=== PATIENT | male | born 1980 | race Caucasian/White ===

== ENCOUNTER 2019-01-21 22:38 | Emergency (ER) | payer OTHER ==
[~2019-01-21] VITALS: Ht 177.8 cm; Wt 72.6 kg
[~2019-01-21 22:38] MED LIST: ACYC400 PO; ALBU90OI INH; ALPR1; ALPR1 PO; AMOX500 PO; AMOX875 PO; Amoxicillin500 MG PO; CEPH500 PO; CLIN300 PO; CLON.1 PO; CLON.2 PO; CLON1 PO; CYCL10 PO; Cleocin HCl300 MG PO; DIPATR PO; FLUO10; GENT.3OPSA OU; HYDACE5 PO; HYDACE5325 PO; HYDHCL25 PO; IBUP200; IBUP600 PO; IBUP800 PO; LORA1 PO; LORA10ER PO; LORA2 PO; MAGIC MOUTHWASH; META800 PO; METH10; METH10 PO; METH40; METH40 PO; METH5; NAPR500 PO; NAPR550 PO; Naprosyn500 MG PO; OXYACE5T PO; PENVK250 PO; PENVK500 PO; PRED10 PO; PROC10 PO; PROM25 PO; Prednisone20 MG PO; RXCLIN PO; RXCYCL10 PO; RXHYDACE PO; RXIBUP800 PO; RXMETA800 PO; RXNAPNA550 PO; RXOXYACE PO; RXPENVK250 PO; SULTRIDS PO; SUMA25 PO; Sudogest30 MG PO; TRAM50 PO; Veetids 500500 MG PO; ZOLP10 PO; Zovirax800 MG PO
[2019-01-21] MEDS ORDERED: Vibramycin100 MG PO (22:57)
== END 2019-01-21 23:03 | disposition home or self-care (01) ==
LOC: ER 22:38
DX: L03.114 Cellulitis of left upper limb (principal); J45.909 Unspecified asthma, uncomplicated; F17.200 Nicotine dependence, unspecified, uncomplicated; Z88.5 Allergy status to narcotic agent; Z88.2 Allergy status to sulfonamides; Z88.8 Allergy status to other drugs, medicaments and biological substances
CPT/HCPCS: 99283

== ENCOUNTER 2019-09-24 10:22 | Observation (INO) | payer OTHER ==
[~2019-09-24] VITALS: Ht 175.3 cm; Wt 74.7 kg
[~2019-09-24 10:22] MED LIST changes: +Vibramycin100 MG PO
[2019-09-24 11:25] LABS: Alanine Aminotransfer (ALT/SGP 21 U/L (12-78); Albumin, Blood 2.9 g/dL (3.4-5.0); Albumin/Globulin Ratio 0.7 (0.8-1.8); Alk Phos 112 U/L (50-136); Anion Gap 4 mmol/L (6-16); Aspartate Aminotrans (AST/SGOT 12 U/L (12-37); Bilirubin, Total 0.2 mg/dL (0.1-1.0); Blood Urea Nitrogen 13 mg/dL (8-24); Bun/Creatinine Ratio 19.9 (12.0-20.0); CO2, Blood 29 mmol/L (21-32); Calcium, Blood 8.7 mg/dL (8.5-10.1); Chloride, Blood 106 mmol/L (98-108); Creatinine, Blood 0.65 mg/dL (0.60-1.20); Globulin, Blood 3.9 g/dL (2.2-4.0); Glomerular Filtration Rate >60 (60-); Glucose, Blood 137 mg/dL (70-99); Potassium, Blood 3.9 mmol/L (3.5-5.5); Sodium, Blood 139 mmol/L (136-145); Total Protein, Blood 6.8 g/dL (6.4-8.2)
[2019-09-24 11:38] LABS: BASOPHILS ABSOLUTE AUTO 0.04 K/mm3 (0.00-0.23); BASOPHILS PERCENT AUTO 0 % (0-2); EOSINOPHILS ABSOLUTE AUTO 0.21 K/mm3 (0.00-0.68); EOSINOPHILS PERCENT AUTO 2 % (0-6); Hematocrit 36.8 % (37.0-53.0); Hemoglobin 11.9 g/dL (13.5-17.5); IMMATURE GRAN ABSOLUTE AUTO 0.03 K/mm3 (0.00-0.10); IMMATURE GRAN PERCENT AUTO 0 % (0-1); LYMPHOCYTES ABSOLUTE AUTO 2.22 K/mm3 (0.84-5.20); LYMPHOCYTES PERCENT AUTO 20 % (21-46); MONOCYTES ABSOLUTE AUTO 0.81 K/mm3 (0.16-1.47); MONOCYTES PERCENT AUTO 7 % (4-13); Mean Corpuscular HGB 30.4 pg (26.0-34.0); Mean Corpuscular HGB Conc 32.3 g/dL (31.5-36.5); Mean Corpuscular Volume 94 fL (80-100); NEUTROPHILS ABSOLUTE AUTO 7.94 K/mm3 (1.96-9.15); NEUTROPHILS PERCENT AUTO 71 % (41-73); RDW Coefficient Variation 13.2 % (11.7-14.2); RDW Standard Deviation 45.7 fL (35.1-46.3); Red Blood Cell Count 3.92 M/mm3 (4.30-5.90); White Blood Cell Count 11.25 K/mm3 (4.00-11.30)
[2019-09-24 11:42] LABS: Mean Platelet Volume 10.5 fL (9.1-12.4); Platelet Count 251 K/mm3 (150-400)
--- NOTE | 2019-09-24 17:28 | NUR ---
SHIFT SUMMARY 1430 RECEIVED PT TO RM 338 VIA W/C FROM ER FOR LH CELLULITIS. PT HERE YESTERDAY FOR THE SAME, BUT WENT AMA. PER REPORT FROM VINNIE LYMAN, LH CELLULITIS FROM A MISSED HEROIN INJECTION. REDNESS AND SWELLING TO LH, WITH SWELLING GOING UP L ARM TO ELBOW. IV ABX GIVEN IN ER WITH 1L IVF'S. PT HAS BEEN CO-OP WITH CARE TO PRESENT. PT INFORMED IN ER BY DR DANIEL AND NURSING STAFF THAT HE WOULD NOT BE GETTING ANY IV PAIN MEDICATION WHILE HERE. PT AGREED TO BE ADMITTED AND WILLING TO TAKE PO PAIN MEDICATION TO PRESENT. IV TO L FOOT INFUSING IV ABX AT THIS TIME. PT HAS BEEN VERY DROWSY, BUT WAKES BRIEFLY TO CARE. PER REPORT, PT LAST USED HEROIN TODAY BEFORE COMING IN. VISITOR IN AT BS WHILE PT SLEEPING. CALL LT IN REACH.
--- NOTE | 2019-09-24 23:47 | NUR ---
DR NGUYEN called & informed PT is seeking methadone 40 mg . He has been activly using IV heroin 1 gram daily x 8 months last use last night. He used to recieve 140 mg methadone daily from [facility] methadone clinic but relapsed 8 monhts ago. He says he desired to stop heroin use & resume methadone per clinic on discharge. says he needs active medication from home med list to rx methadone. PT had been offered suboxone but declined says it makes him sick. Is quiet, indep in room, says he will have to go AMA if he can't get methadone? continue to explore option of resuming methadone. Have medicated for pain with tylenol & roxicodone.
[2019-09-24] MEDS ORDERED: METH40 PO (23:59)
[2019-09-25] MEDS ORDERED: CEPH500 PO (12:16)
--- NOTE | 2019-09-25 12:50 | NUR ---
DISCHARGE THIS AM PT ANXIOUS, STATE "BODY ACHES", "ALL OVER". STATE HE IS HEROIN USER NEEDS METHADONE AND NO ONE IS LISTENING TO HIM. PRN OXYCODONE 5MG GIVEN FOR PAIN. PT STATE HE NEEDS TO LEAVE AMA. DR SCHMID NOTIFIED. PT'S L ARM CELLULITIS APPEARS IMPROVED, MINIMAL REDNESS, CONTINUES SWOLLEN. DR SCHMID IN TO SEE HIM, STATE HE MAY GO HOME TODAY, PROVIDE D/C ORDERS. IV D/C INTACT. SHOWER PROVIDED. D/C INSTRUCT PROVIDED w EMPHASIS ON L ARM HYGIENE & ANTIBX. HIS FRIEND IN FOR TRANSPORT HOME. PT CHOOSES TO AMBULATE FROM HOSP. STATES APPRECIATION.
== END 2019-09-25 12:35 | disposition home or self-care (01) ==
LOC: ER 10:22 → MEDS 10:23 → ER 12:59 → MEDS 12:59
PROVIDERS: Emergency Medicine; ADMIT Internal Medicine
DX: L03.114 Cellulitis of left upper limb (principal); J45.909 Unspecified asthma, uncomplicated; F11.10 Opioid abuse, uncomplicated; F17.210 Nicotine dependence, cigarettes, uncomplicated; Z88.2 Allergy status to sulfonamides; Z88.1 Allergy status to other antibiotic agents; Z88.6 Allergy status to analgesic agent
CPT/HCPCS: 36415; 80053; 85025; 96361; 96365; 96366; 96367; 96376; 99284-25; A9270; G0378; J0690; J3370; J7030; J7050

== ENCOUNTER 2019-12-16 08:32 | Emergency (ER) | payer OTHER ==
[~2019-12-16] VITALS: Ht 175.3 cm; Wt 72.6 kg
[2019-12-16] MEDS ORDERED: DOXY100 PO (09:41)
== END 2019-12-16 09:50 | disposition home or self-care (01) ==
LOC: ER 08:32
DX: L02.413 Cutaneous abscess of right upper limb (principal); L02.414 Cutaneous abscess of left upper limb; L03.114 Cellulitis of left upper limb; L03.113 Cellulitis of right upper limb; F17.210 Nicotine dependence, cigarettes, uncomplicated; Z88.5 Allergy status to narcotic agent; Z88.2 Allergy status to sulfonamides; Z88.1 Allergy status to other antibiotic agents; Z86.59 Personal history of other mental and behavioral disorders
CPT/HCPCS: 10061; 99283-25

== ENCOUNTER 2020-10-06 21:04 | Emergency (ER) | payer OTHER ==
[~2020-10-06] VITALS: Ht 177.8 cm; Wt 81.7 kg
[~2020-10-06 21:04] MED LIST changes: +DOXY100 PO
[2020-10-06] MEDS ORDERED: BENZ100A PO (21:39)
== END 2020-10-06 21:48 | disposition home or self-care (01) ==
LOC: ER 21:04
DX: U07.1 COVID-19 (principal); F17.210 Nicotine dependence, cigarettes, uncomplicated; J45.909 Unspecified asthma, uncomplicated; Z88.5 Allergy status to narcotic agent; Z88.2 Allergy status to sulfonamides; Z88.1 Allergy status to other antibiotic agents
CPT/HCPCS: 99283; A9270

== ENCOUNTER 2020-10-10 13:26 | Inpatient (IN) | payer OTHER ==
[~2020-10-10] VITALS: Ht 180.3 cm; Wt 73.2 kg
[~2020-10-10 13:26] MED LIST changes: +BENZ100A PO
[2020-10-10 14:07] LABS: Hematocrit 45.3 % (37.0-53.0); Hemoglobin 15.2 g/dL (13.5-17.5); Mean Corpuscular HGB Conc 33.6 g/dL (31.5-36.5); Mean Corpuscular Volume 87 fL (80-100); Mean Platelet Volume 11.7 fL (9.1-12.4); Platelet Count 213 K/mm3 (150-400); RDW Coefficient Variation 14.1 % (11.7-14.2); Red Blood Cell Count 5.24 M/mm3 (4.30-5.90); White Blood Cell Count 7.96 K/mm3 (4.00-11.30)
[2020-10-10 14:25] LABS: Alanine Aminotransfer (ALT/SGP 108 U/L (12-78); Albumin, Blood 2.1 g/dL (3.4-5.0); Albumin/Globulin Ratio 0.4 (0.8-1.8); Alk Phos 77 U/L (50-136); Anion Gap 9 mmol/L (6-16); Aspartate Aminotrans (AST/SGOT 375 U/L (12-37); Bilirubin, Total 0.7 mg/dL (0.1-1.0); Blood Urea Nitrogen 27 mg/dL (8-24); Bun/Creatinine Ratio 30.5 (12.0-20.0); CO2, Blood 24 mmol/L (21-32); Calcium, Blood 8.6 mg/dL (8.5-10.1); Chloride, Blood 99 mmol/L (98-108); Creatinine, Blood 0.88 mg/dL (0.60-1.20); Globulin, Blood 5.1 g/dL (2.2-4.0); Glomerular Filtration Rate >60 (60-); Glucose, Blood 128 mg/dL (70-99); Potassium, Blood 4.2 mmol/L (3.5-5.5); Sodium, Blood 132 mmol/L (136-145); Total Protein, Blood 7.2 g/dL (6.4-8.2)
[2020-10-10 14:38] LABS: C-REACTIVE PROTEIN, EXT RANGE >19.000 mg/dL (0.000-0.300)
[2020-10-10 14:40] LABS: BAND PERCENT MAN 12 % (0-8); BASOPHILS PERCENT MAN 0 % (0-2); EOSINOPHILS ABSOLUTE MAN 0.07 K/mm3 (0.00-0.68); EOSINOPHILS PERCENT MAN 1 % (0-6); LYMPHOCYTES ABSOLUTE MAN 0.31 K/mm3 (0.84-5.20); LYMPHOCYTES PERCENT MAN 4 % (21-46); METAMYELOCYTE ABSOLUTE MAN 0.31 K/mm3 (0.00-0.00); METAMYELOCYTE PERCENT MAN 4 % (0-0); MONOCYTES PERCENT MAN 0 % (4-13); MYELOCYTE ABSOLUTE MAN 0.07 K/mm3 (0.00-0.00); MYELOCYTE PERCENT MAN 1 % (0-0); NEUTROPHILS ABSOLUTE MAN 7.16 K/mm3 (1.96-9.15); SEG NEUTROPHILS PERCENT MAN 78 % (41-73); TOTAL CELLS COUNTED 100
--- NOTE | 2020-10-11 05:56 | NUR ---
SUMMARY PT ARRIVED TO FLOOR IN NO DISTRESS. PT C/O HEROIN WITHDRAW AND DIARRHEA. PT PULLING OFF O2 FREQUENTLY AND DESATING. PT IS ON 15 LPM NONREBREATHER AND BIOX IS 88-92%. PT IS IMPULSIVE AND HIGH FALL RISK. PT CURRENTLY SLEEPING. BED ALARM ON.
--- NOTE | 2020-10-11 12:34 | NUR ---
PT WENT AMA AT 1230. EDUCATED ON THE RISKS OF LEAVING. THE BIGGEST RISK IS DUE TO HAVING COVID AND NEEDING 12 LITERS OF HIGH FLOW OXYGEN IN TO ORDER TO BREATHE. PT REPORTED THAT HE UNDERSTANDS AND WOULD RATHER GO GET HEROIN. DR. KEYES NOTIFIED AND AGREEABLE THAT PT WAS ADMITTED VOLUNTARILY AND IS ALERT AND ORIENTED ENOUGH TO MAKE HIS OWN MEDICAL DECISIONS.
== END 2020-10-11 12:49 | disposition left against medical advice (07) | DRG 871 ==
LOC: ER 13:26 → MEDS 16:50 → ERHOLD 16:50 → MEDS 19:35
PROVIDERS: Emergency Medicine; ADMIT Internal Medicine
PROC: 8E0ZXY6 Isolation (ICD-10-PCS; principal; 2020-10-10)
PROC: 3E0333Z Introduction of Anti-inflammatory into Peripheral Vein, Percutaneous Approach (ICD-10-PCS; 2020-10-10)
PROC: XW033E5 Introduction of Remdesivir Anti-infective into Peripheral Vein, Percutaneous Approach, New Technology Group 5 (ICD-10-PCS; 2020-10-10)
DX: A41.89 Other specified sepsis (principal); U07.1 COVID-19; J12.82 Pneumonia due to coronavirus disease 2019; E87.1 Hypo-osmolality and hyponatremia; F11.13 Opioid abuse with withdrawal; T40.1X1A Poisoning by heroin, accidental (unintentional), initial encounter; J45.909 Unspecified asthma, uncomplicated; F17.210 Nicotine dependence, cigarettes, uncomplicated; Z88.2 Allergy status to sulfonamides; Z59.0 Homelessness; Z88.8 Allergy status to other drugs, medicaments and biological substances; Z79.899 Other long term (current) drug therapy
CPT/HCPCS: 36415; 71045; 80053; 83605; 84145; 85025; 85379; 86140; 87040; 93005; 93010; 96365; 96375; 99285-25; A9270; J1100; J1170; J1650; J2310; J7030

== ENCOUNTER 2020-10-11 14:44 | Emergency (ER) | payer OTHER ==
[~2020-10-11] VITALS: Ht 177.8 cm; Wt 68.0 kg
[2020-10-11 17:22] LABS: Hemoglobin 13.3 g/dL (13.5-17.5); Mean Corpuscular HGB 29.5 pg (26.0-34.0); Mean Corpuscular Volume 84 fL (80-100); Mean Platelet Volume 11.6 fL (9.1-12.4); Platelet Count 253 K/mm3 (150-400); RDW Coefficient Variation 13.8 % (11.7-14.2); Red Blood Cell Count 4.51 M/mm3 (4.30-5.90); White Blood Cell Count 6.86 K/mm3 (4.00-11.30)
[2020-10-11 17:36] LABS: Alanine Aminotransfer (ALT/SGP 112 U/L (12-78); Albumin/Globulin Ratio 0.4 (0.8-1.8); Alk Phos 84 U/L (50-136); Anion Gap 9 mmol/L (6-16); Aspartate Aminotrans (AST/SGOT 276 U/L (12-37); Bilirubin, Total 0.9 mg/dL (0.1-1.0); Blood Urea Nitrogen 23 mg/dL (8-24); Bun/Creatinine Ratio 30.5 (12.0-20.0); CO2, Blood 23 mmol/L (21-32); Calcium, Blood 8.8 mg/dL (8.5-10.1); Chloride, Blood 101 mmol/L (98-108); Creatinine, Blood 0.75 mg/dL (0.60-1.20); Globulin, Blood 4.8 g/dL (2.2-4.0); Glomerular Filtration Rate >60 (60-); Glucose, Blood 96 mg/dL (70-99); Sodium, Blood 133 mmol/L (136-145); Total Protein, Blood 6.8 g/dL (6.4-8.2)
[2020-10-11 18:27] LABS: BAND PERCENT MAN 6 % (0-8); BASOPHILS PERCENT MAN 0 % (0-2); EOSINOPHILS PERCENT MAN 0 % (0-6); LYMPHOCYTES ABSOLUTE MAN 0.41 K/mm3 (0.84-5.20); LYMPHOCYTES PERCENT MAN 6 % (21-46); MONOCYTES PERCENT MAN 3 % (4-13); NEUTROPHILS ABSOLUTE MAN 6.24 K/mm3 (1.96-9.15); SEG NEUTROPHILS PERCENT MAN 85 % (41-73); TOTAL CELLS COUNTED 100
== END 2020-10-11 18:58 | disposition home or self-care (01) ==
LOC: ER 14:44
PROVIDERS: Physician Assistant
DX: U07.1 COVID-19 (principal); T40.1X1A Poisoning by heroin, accidental (unintentional), initial encounter; F11.10 Opioid abuse, uncomplicated; F17.210 Nicotine dependence, cigarettes, uncomplicated; J45.909 Unspecified asthma, uncomplicated; Z59.0 Homelessness; Z88.8 Allergy status to other drugs, medicaments and biological substances; Z88.5 Allergy status to narcotic agent; Z88.2 Allergy status to sulfonamides; Z88.1 Allergy status to other antibiotic agents
CPT/HCPCS: 80053; 85025; 99283-25; M0243; Q0243

== ENCOUNTER 2020-12-16 20:09 | Emergency (ER) | payer OTHER ==
[~2020-12-16] VITALS: Ht 180.3 cm; Wt 72.6 kg
[2020-12-16] MEDS ORDERED: Cleocin HCl300 MG PO (22:49)
== END 2020-12-16 23:00 | disposition home or self-care (01) ==
LOC: ER 20:09
DX: L02.31 Cutaneous abscess of buttock (principal); L03.317 Cellulitis of buttock; Z88.5 Allergy status to narcotic agent; Z88.2 Allergy status to sulfonamides; Z88.1 Allergy status to other antibiotic agents; F17.210 Nicotine dependence, cigarettes, uncomplicated
CPT/HCPCS: 10060; 99282-25; A9270

== ENCOUNTER 2021-03-23 18:35 | Emergency (ER) | payer OTHER ==
[~2021-03-23] VITALS: Ht 175.3 cm; Wt 77.1 kg
[2021-03-23 21:45] LABS: BASOPHILS ABSOLUTE AUTO 0.03 K/mm3 (0.00-0.23); BASOPHILS PERCENT AUTO 0 % (0-2); EOSINOPHILS ABSOLUTE AUTO 0.06 K/mm3 (0.00-0.68); EOSINOPHILS PERCENT AUTO 1 % (0-6); Hemoglobin 11.8 g/dL (13.5-17.5); IMMATURE GRAN ABSOLUTE AUTO 0.02 K/mm3 (0.00-0.10); IMMATURE GRAN PERCENT AUTO 0 % (0-1); LYMPHOCYTES ABSOLUTE AUTO 1.96 K/mm3 (0.84-5.20); LYMPHOCYTES PERCENT AUTO 24 % (21-46); MONOCYTES ABSOLUTE AUTO 0.87 K/mm3 (0.16-1.47); MONOCYTES PERCENT AUTO 11 % (4-13); Mean Corpuscular HGB 29.1 pg (26.0-34.0); Mean Corpuscular HGB Conc 33.7 g/dL (31.5-36.5); Mean Corpuscular Volume 86 fL (80-100); Mean Platelet Volume 9.8 fL (9.1-12.4); NEUTROPHILS ABSOLUTE AUTO 5.26 K/mm3 (1.96-9.15); NEUTROPHILS PERCENT AUTO 64 % (41-73); Platelet Count 354 K/mm3 (150-400); RDW Coefficient Variation 14.6 % (11.7-14.2); RDW Standard Deviation 46.4 fL (35.1-46.3); Red Blood Cell Count 4.06 M/mm3 (4.30-5.90)
[2021-03-23 22:06] LABS: Alanine Aminotransfer (ALT/SGP 15 U/L (12-78); Albumin, Blood 2.8 g/dL (3.4-5.0); Albumin/Globulin Ratio 0.7 (0.8-1.8); Alk Phos 97 U/L (50-136); Anion Gap 5 mmol/L (6-16); Aspartate Aminotrans (AST/SGOT 13 U/L (12-37); Bilirubin, Total 0.1 mg/dL (0.1-1.0); Blood Urea Nitrogen 13 mg/dL (8-24); Bun/Creatinine Ratio 15.2 (12.0-20.0); CO2, Blood 28 mmol/L (21-32); Calcium, Blood 8.7 mg/dL (8.5-10.1); Chloride, Blood 102 mmol/L (98-108); Creatinine, Blood 0.86 mg/dL (0.60-1.20); Globulin, Blood 4.3 g/dL (2.2-4.0); Glomerular Filtration Rate >60 (60-); Glucose, Blood 100 mg/dL (70-99); Potassium, Blood 3.9 mmol/L (3.5-5.5); Sodium, Blood 135 mmol/L (136-145); Total Protein, Blood 7.1 g/dL (6.4-8.2)
[2021-03-23] MEDS ORDERED: Vibramycin100 MG PO (22:20)
== END 2021-03-23 22:40 | disposition home or self-care (01) ==
LOC: ER 18:35
PROVIDERS: Emergency Medicine
DX: L03.113 Cellulitis of right upper limb (principal); L02.413 Cutaneous abscess of right upper limb; J45.909 Unspecified asthma, uncomplicated; F17.210 Nicotine dependence, cigarettes, uncomplicated; Z88.2 Allergy status to sulfonamides; Z88.5 Allergy status to narcotic agent
CPT/HCPCS: 80053; 83605; 85025; 99283; A9270

== ENCOUNTER 2021-04-09 02:49 | Emergency (ER) | payer OTHER ==
[~2021-04-09] VITALS: Ht 180.3 cm; Wt 77.1 kg
== END 2021-04-09 03:45 | disposition home or self-care (01) ==
LOC: ER 02:49
DX: L02.413 Cutaneous abscess of right upper limb (principal); F15.10 Other stimulant abuse, uncomplicated; Z88.5 Allergy status to narcotic agent; F17.210 Nicotine dependence, cigarettes, uncomplicated
CPT/HCPCS: 99282

== ENCOUNTER 2021-10-13 19:31 | Emergency (ER) | payer OTHER ==
[~2021-10-13] VITALS: Ht 175.3 cm; Wt 81.7 kg
[2021-10-13] MEDS ORDERED: FAMC500 PO (22:25)
[2021-10-13] MEDS ORDERED: Vibramycin100 MG PO (22:25)
== END 2021-10-13 22:25 | disposition home or self-care (01) ==
LOC: ER 19:31
DX: L03.113 Cellulitis of right upper limb (principal); L53.9 Erythematous condition, unspecified; L08.9 Local infection of the skin and subcutaneous tissue, unspecified; J45.909 Unspecified asthma, uncomplicated; F17.210 Nicotine dependence, cigarettes, uncomplicated; Z88.5 Allergy status to narcotic agent; Z88.2 Allergy status to sulfonamides; Z88.1 Allergy status to other antibiotic agents; Z79.899 Other long term (current) drug therapy
CPT/HCPCS: A9270

== ENCOUNTER 2022-07-07 19:40 | Emergency (ER) | payer OTHER ==
[~2022-07-07] VITALS: Ht 170.2 cm; Wt 68.0 kg
[~2022-07-07 19:40] MED LIST changes: +FAMC500 PO
[2022-07-07 21:30] VITALS: BP 108/78
== END 2022-07-07 22:40 | disposition left against medical advice (07) ==
LOC: ER 19:40
DX: Z02.89 Encounter for other administrative examinations (principal); T40.411A Poisoning by fentanyl or fentanyl analogs, accidental (unintentional), initial encounter; F17.210 Nicotine dependence, cigarettes, uncomplicated; Z88.5 Allergy status to narcotic agent; Z88.8 Allergy status to other drugs, medicaments and biological substances; Z53.29 Procedure and treatment not carried out because of patient's decision for other reasons
CPT/HCPCS: 93005; 93010

== ENCOUNTER 2023-01-22 18:28 | Emergency (ER) | payer OTHER ==
[~2023-01-22] VITALS: Ht 165.1 cm; Wt 63.5 kg
[2023-01-22 18:42] VITALS: BP 128/84
[2023-01-22] MEDS ORDERED: Amoxicillin500 MG PO (18:53)
== END 2023-01-22 19:17 | disposition home or self-care (01) ==
LOC: ER 18:28
DX: J02.0 Streptococcal pharyngitis (principal); J45.909 Unspecified asthma, uncomplicated; F17.210 Nicotine dependence, cigarettes, uncomplicated; Z88.2 Allergy status to sulfonamides; Z88.5 Allergy status to narcotic agent
CPT/HCPCS: 87430; 99282; A9270

== ENCOUNTER 2024-04-06 16:36 | Emergency (ER) | payer OTHER ==
[~2024-04-06] VITALS: Ht 175.3 cm; Wt 81.7 kg
[~2024-04-06 16:36] MED LIST changes: +AMOCLA875 PO
[2024-04-06 17:19] LABS: BASOPHILS ABSOLUTE AUTO 0.06 K/mm3 (0.00-0.23); BASOPHILS PERCENT AUTO 1 % (0-2); EOSINOPHILS ABSOLUTE AUTO 0.21 K/mm3 (0.00-0.68); EOSINOPHILS PERCENT AUTO 3 % (0-6); Hematocrit 41.2 % (37.0-53.0); Hemoglobin 14.3 g/dL (13.5-17.5); IMMATURE GRAN ABSOLUTE AUTO 0.05 K/mm3 (0.00-0.10); IMMATURE GRAN PERCENT AUTO 1 % (0-1); LYMPHOCYTES ABSOLUTE AUTO 1.92 K/mm3 (0.84-5.20); LYMPHOCYTES PERCENT AUTO 25 % (21-46); MONOCYTES ABSOLUTE AUTO 0.49 K/mm3 (0.16-1.47); MONOCYTES PERCENT AUTO 6 % (4-13); Mean Corpuscular HGB 31.4 pg (26.0-34.0); Mean Corpuscular HGB Conc 34.7 g/dL (31.5-36.5); Mean Corpuscular Volume 90 fL (80-100); Mean Platelet Volume 10.5 fL (9.1-12.4); NEUTROPHILS PERCENT AUTO 64 % (41-73); Platelet Count 261 K/mm3 (150-400); RDW Standard Deviation 43.2 fL (35.1-46.3); Red Blood Cell Count 4.56 M/mm3 (4.30-5.90); White Blood Cell Count 7.63 K/mm3 (4.00-11.30)
[2024-04-06 17:41] LABS: Ethanol (Alcohol), Blood, Med <3 mg/dL; Salicylate 1.8 mg/dL (2.8-20.0)
[2024-04-06 17:46] LABS: Alanine Aminotransfer (ALT/SGP 37 U/L (12-78); Albumin, Blood 3.5 g/dL (3.4-5.0); Albumin/Globulin Ratio 0.9 (0.8-1.8); Alk Phos 90 U/L (50-136); Anion Gap 9 mmol/L (3-11); Aspartate Aminotrans (AST/SGOT 21 U/L (12-37); Bilirubin, Total 0.2 mg/dL (0.1-1.0); Blood Urea Nitrogen 17 mg/dL (8-24); Bun/Creatinine Ratio 20.2 (12.0-20.0); CO2, Blood 25 mmol/L (21-32); Calcium, Blood 8.9 mg/dL (8.5-10.1); Chloride, Blood 109 mmol/L (98-108); Creatinine, Blood 0.84 mg/dL (0.60-1.20); Globulin, Blood 3.7 g/dL (2.2-4.0); Glomerular Filtration Rate 110 (60-); Glucose, Blood 112 mg/dL (70-99); Potassium, Blood 4.1 mmol/L (3.5-5.5); Sodium, Blood 139 mmol/L (136-145); Total Protein, Blood 7.2 g/dL (6.4-8.2)
[2024-04-06 17:47] LABS: Acetaminophen, Random <2.0 ug/mL (10.0-30.0)
[2024-04-06] MEDS ORDERED: Ondansetron 4 MG SoluTab SL ONE (19:30)
[2024-04-06] MEDS ORDERED: Acetaminophen 500 MG Tab PO ONE (19:30)
[2024-04-06] MEDS ORDERED: RX Prepack 2 Sprays Naloxone HCL 4 MG/SPRAY UD ONE (20:15)
[2024-04-06 21:16] VITALS: BP 160/94
== END 2024-04-06 21:19 | disposition home or self-care (01) ==
LOC: ER 16:36
PROVIDERS: Student in an Organized Health Care Education/Training Program
DX: T40.412A Poisoning by fentanyl or fentanyl analogs, intentional self-harm, initial encounter (principal); J45.909 Unspecified asthma, uncomplicated; F17.210 Nicotine dependence, cigarettes, uncomplicated; Z88.5 Allergy status to narcotic agent; Z88.1 Allergy status to other antibiotic agents
CPT/HCPCS: 71046; 80053; 80320; 85025; 93005; 93010; 99284-25; A9270; G0480

== ENCOUNTER 2024-12-09 20:11 | Emergency (ER) | payer OTHER ==
[~2024-12-09] VITALS: Ht 175.3 cm; Wt 86.2 kg
[2024-12-09 20:22] VITALS: BP 152/96
[2024-12-09] MEDS ORDERED: HYDPAM50 PO (20:38)
== END 2024-12-09 20:31 | disposition home or self-care (01) ==
LOC: ER 20:11
DX: F41.0 Panic disorder [episodic paroxysmal anxiety] (principal); F17.210 Nicotine dependence, cigarettes, uncomplicated; Z88.5 Allergy status to narcotic agent; Z88.2 Allergy status to sulfonamides; Z88.1 Allergy status to other antibiotic agents; Z79.2 Long term (current) use of antibiotics
CPT/HCPCS: 99282; A9270